=== PATIENT | male | born 1990 | race Caucasian/White ===

== ENCOUNTER 2016-02-20 08:47 | Emergency (ER) | payer BC, OTHER ==
[2016-02-20] MEDS ORDERED: PIPERACILLIN-TAZOBACTAM 3.375 GM in DEXTROSE/WATER 1 50ML.BAG IVPB STA (09:18)
[2016-02-20] MEDS ORDERED: LEVOFLOXACIN 750MG-D5W PMX 750 MG in DEXTROSE/WATER 1 150ML.BAG IVPB STA (09:18)
[2016-02-20] MEDS ORDERED: IV VANCOMYCIN PER PHARMACY 1 EACH MISC MISCELLANE PRN (09:18)
--- NOTE | 2016-02-20 09:25 | ED ---
Fever HPI - General Chief Complaint: Fever Stated Complaint: Poss Sepsis Time Seen by Provider: 02/20/16 08:50 Source: patient Mode of arrival: EMS Limitations: no limitations - History of Present Illness Initial Comments: This patient is a 25-year-old man with history of end-stage renal disease due to polycystic kidney disease, as well as having recent decubitus ulcer with infection, who [facility] [place] [facility] after he developed fever there overnight. The patient is also complaining of feeling weak. He is having a little bit of pain local to the ulcer site. He is denying other complaints. MD Complaint: fever, malaise -: hour(s) Temperature Source: oral Treatments Prior to Arrival: Acetaminophen - Related Data Home Medications Medication Instructions Recorded Confirmed ALPRAZolam [Xanax] 0.5 mg PO DAILY PRN 02/14/16 02/20/16 Allopurinol [Zyloprim] 100 mg PO DAILY 02/14/16 02/20/16 Folic Acid-Vit B Complex-Vit C 1 cap PO DAILY 02/14/16 02/20/16 [Nephrocaps] Heparin Sod 1000 Unit/1Ml [Heparin 5,000 unit SQ Q8H 02/14/16 02/20/16 Sodium] Hydrocodone/Acetaminophen 1 tab PO Q4H PRN 02/14/16 02/20/16 [Hydrocodone/Acetaminophen 10-300] Nepro 1 can PO BID-W/MEALS 02/14/16 02/20/16 Ondansetron [Zofran] 4 mg PO Q6H PRN 02/14/16 02/20/16 Pantoprazole Sodium 40 mg PO DAILY 02/14/16 02/20/16 Sodium Bicarbonate 325 mg PO BID 02/14/16 02/20/16 predniSONE 20 mg PO BID 02/14/16 02/20/16 Acetaminophen Tab [Tylenol Tab] 650 mg PO Q6H PRN 02/20/16 02/20/16 Clindamycin [Cleocin] 300 mg PO TID 02/20/16 02/20/16 Allergies Allergy/AdvReac Type Severity Reaction Status Date / Time No Known Allergies Allergy Verified 02/20/16 08:54 Review of Systems ROS Statement: Those systems with pertinent positive or pertinent negative responses have been documented in the HPI. ROS Other: All systems not noted in ROS Statement are negative. Constitutional: Reports: fever, chills, weakness Respiratory: Denies: cough, dyspnea Cardiovascular: Denies: chest pain, syncope Gastrointestinal: Denies: abdominal pain, vomiting, diarrhea Genitourinary: Denies: dysuria Musculoskeletal: Reports: as per HPI, other (Pain near the sacrum) Skin: Denies: rash Neurological: Denies: headache, weakness, numbness Past Medical History Past Medical History: Renal Disease Additional Past Medical History / Comment(s): Necrotizing Fascitis R Hip; Polycystic Kidney Disease; Gout; Wound on Coccyx History of Any Multi-Drug Resistant Organisms: None Reported Additional Past Surgical History / Comment(s): SURGERY FOR INFECTED LEFT ANKLE; R hip wound Past Anesthesia/Blood Transfusion Reactions: No Reported Reaction Past Psychological History: No Psychological Hx Reported Smoking Status: Never smoker Past Alcohol Use History: Rare Past Drug Use History: None Reported - Past Family History Mother Family Medical History: Cancer Father Family Medical History: Cancer General Exam Limitations: no limitations General appearance: alert, in distress Head exam: Present: atraumatic, normocephalic ENT exam: Present: mucous membranes dry Neck exam: Present: normal inspection, full ROM Respiratory exam: Present: normal lung sounds bilaterally, respiratory distress (There is mild tachypnea). Absent: wheezes, rales, rhonchi Cardiovascular Exam: Present: normal rhythm, tachycardia, systolic murmur ( Grade 1 systolic ejection murmur). Absent: diastolic murmur, rubs, gallop GI/Abdominal exam: Present: soft. Absent: distended, tenderness, guarding, rebound, pulsatile mass, hernia Extremities exam: Absent: pedal edema, calf tenderness Back exam: Present: other (There is a stage IV decubitus ulcer to the right of the midline over sacrum. There is foul smelling drainage, however the margins of the wound do look relatively good.) Neurological exam: Present: alert, oriented X3. Absent: motor sensory deficit Skin exam: Present: dry, intact, mottled. Absent: rash, cyanosis, erythema, petechiae, pallor Course Vital Signs 02/20/16 02/20/16 02/20/16 08:49 09:22 09:26 Temperature 104.3 F H Pulse Rate 165 H 155 H 155 H Respiratory 24 18 20 Rate Blood Pressure 78/40 64/33 75/36 O2 Sat by Pulse 97 98 97 Oximetry 02/20/16 02/20/16 02/20/16 09:41 09:56 11:11 Temperature Pulse Rate 155 H 167 H 160 H Respiratory 20 20 22 Rate Blood Pressure 78/43 82/40 71/33 O2 Sat by Pulse 97 96 96 Oximetry 02/20/16 02/20/16 02/20/16 11:26 13:22 13:55 Temperature 102.4 F H Pulse Rate 169 H 164 H 164 H Respiratory 20 22 24 Rate Blood Pressure 75/37 92/39 O2 Sat by Pulse 98 99 99 Oximetry 02/20/16 02/20/16 14:15 14:51 Temperature Pulse Rate 164 H 140 H Respiratory 40 H 38 H Rate Blood Pressure 227/120 127/60 O2 Sat by Pulse 97 99 Oximetry - Reevaluation(s) Reevaluation #1: 02/20/16 10:12 Patient is a 25-year-old man with history of decubitus ulcer, transferred from skilled nursing who appears to be septic. IV fluids and antibiotics are starting. Have discussed the case with Dr. Edgar , who will be seeing the patient. Consult also pending for infectious disease and also call for admitting physician pending. Reevaluation #2: 02/20/16 20:21 This is a late entry. The patient had a cardiac arrest and was resuscitated, see the code sheet. The patient initially went asystolic and after epinephrine and bicarbonate went into V. tach, had defibrillation and then was in sinus rhythm. Additional fluid bolus and pressors ordered. The patient did have a second heart attack arrest while being evaluated by the history teacher. We attempted to resuscitate patient by ACLS protocol, see the resuscitation sheet. During resuscitation the history teacher has spoken with family twice and after the second discussion the patient was pronounced . The rhythm was asystole throughout resuscitation area does appear that the patient has had overwhelming sepsis related to the extensive pneumonia of the left lung. I discussed case with Dr. Rubi who will sign the certificate. I discussed case with the director of medical review who stated that the patient would be released to home. The patient's family is at this point considering requesting autopsy. 02/20/16 20:24 Reevaluation #3: 02/20/16 20:29 The patient did become very dyspneic following the central line placement and when asked he was feeling fatigued, therefore decision to intubate the patient. See the procedure note. Prior to that he had been breathing comfortably and having good pulse oximetry readings. Procedures - Central Line Placement Left Femoral Consent Obtained: verbal consent Time Out Performed: Yes Patient Placed on Monitor/Pulse Ox: Yes MD Prep: mask, gown, gloves Central Line Prep: Chlorhexidine scrub, sterile drapes applied Local Anesthesia Used: Lidocaine 1% Ultrasound Used for Placement: Yes Central Line Lumen Inserted: triple Bloods Obtained for Lab: Yes (Repeat lactic acid) Central Line Position: all ports aspirated, flushed, capped, sutured in place with 3-0 nylon Dressing Applied: Tegaderm Patient Tolerated Procedure: well, no complications - Intubation Sedative: Versed Paralytic: Rocuronium Laryngoscope: Eileen Size: 3 ET Tube Size: 8 ET Tube Uncuffed: No Tube Placement Confirmation: visualized tube passing through cords, equal breath sounds bilaterally, no breath sounds over epigastrium, confirmation by capnometry Patient Tolerated Procedure: well Intubation Complications: none Medical Decision Making - Medical Decision Making Patient's 25-year-old man presenting with fever and hypotension. Clinically appears and sepsis. IV fluid bolus and antibiotics ordered. Case discussed with consultants and their recommendations are incorporated. The patient's blood pressure did transiently respond with fluids however he again became hypotensive and central line placed. Fluid bolus and pressors ordered, however at the end of the central line placement the blood pressure is adequate. Following the central line placement, the patient becoming more dyspneic - Lab Data Result diagrams: 02/20/16 08:50 02/20/16 08:50 Lab Results 02/20/16 02/20/16 02/20/16 Range/Units 08:50 08:50 08:50 WBC 10.0 (3.8-10.6) k/uL RBC 2.78 L (4.30-5.90) m/uL Hgb 8.1 L (13.0-17.5) gm/dL Hct 25.4 L (39.0-53.0) % MCV 91.4 (80.0-100.0) fL MCH 29.3 (25.0-35.0) pg MCHC 32.1 (31.0-37.0) g/dL RDW 17.0 H (11.5-15.5) % Plt Count 158 (150-450) k/uL Neutrophils % Not Reportable Neutrophils % (Manual) 70.0 % Band Neutrophils % 12.5 % Lymphocytes % Not Reportable Lymphocytes % (Manual) 9.0 % Monocytes % Not Reportable Monocytes % (Manual) 6.5 % Eosinophils % Not Reportable Basophils % Not Reportable Metamyelocytes % 1.5 % Myelocytes % 0.5 % Neutrophils # Not Reportable Neutrophils # (Manual) 8.3 H (1.3-7.7) k/uL Lymphocytes # Not Reportable Lymphocytes # (Manual) 0.9 L (1.0-4.8) k/uL Monocytes # Not Reportable Monocytes # (Manual) 0.7 (0-1.0) k/uL Eosinophils # Not Reportable Basophils # Not Reportable Nucleated RBCs 0 (0-0) /100 WBC Differential Comment Not Reportable Manual Slide Review Performed Toxic Granulation Present Toxic Vacuolation Present Anisocytosis Slight Rouleaux Present PT (9.0-12.0) sec INR (<1.1) APTT (22.0-30.0) sec ABG Lactic Acid (0.5-1.6) mmol/L Sodium 132 L (137-145) mmol/L Potassium 4.6 (3.5-5.1) mmol/L Chloride 95 L (98-107) mmol/L Carbon Dioxide 21 L (22-30) mmol/L Anion Gap 16 mmol/L BUN 67 H (9-20) mg/dL Creatinine 5.20 H* (0.66-1.25) mg/dL Est GFR (MDRD) Af Amer 17 (>60 ml/min/1.73 sqM) Est GFR (MDRD) Non-Af 14 (>60 ml/min/1.73 sqM) Glucose 101 H (74-99) mg/dL Plasma Lactic Acid Basilio (0.7-2.0) mmol/L Calcium 8.0 L (8.4-10.2) mg/dL Total Bilirubin 0.6 (0.2-1.3) mg/dL AST 37 (17-59) U/L ALT 42 (21-72) U/L Alkaline Phosphatase 86 (38-126) U/L Total Creatine Kinase <20 L (55-170) U/L CK-MB (CK-2) 0.3 (0.0-2.4) ng/mL CK-MB (CK-2) Rel Index 0.0 Troponin I 0.028 (0.000-0.034) ng/mL Total Protein 4.0 L (6.3-8.2) g/dL Albumin 2.3 L (3.5-5.0) g/dL Cortisol 52 ug/dL 02/20/16 02/20/16 02/20/16 Range/Units 08:50 08:50 13:41 WBC (3.8-10.6) k/uL RBC (4.30-5.90) m/uL Hgb (13.0-17.5) gm/dL Hct (39.0-53.0) % MCV (80.0-100.0) fL MCH (25.0-35.0) pg MCHC (31.0-37.0) g/dL RDW (11.5-15.5) % Plt Count (150-450) k/uL Neutrophils % Neutrophils % (Manual) % Band Neutrophils % % Lymphocytes % Lymphocytes % (Manual) % Monocytes % Monocytes % (Manual) % Eosinophils % Basophils % Metamyelocytes % % Myelocytes % % Neutrophils # Neutrophils # (Manual) (1.3-7.7) k/uL Lymphocytes # Lymphocytes # (Manual) (1.0-4.8) k/uL Monocytes # Monocytes # (Manual) (0-1.0) k/uL Eosinophils # Basophils # Nucleated RBCs (0-0) /100 WBC Differential Comment Manual Slide Review Toxic Granulation Toxic Vacuolation Anisocytosis Rouleaux PT 10.9 (9.0-12.0) sec INR 1.1 (<1.1) APTT 37.6 H (22.0-30.0) sec ABG Lactic Acid 7.3 H* (0.5-1.6) mmol/L Sodium (137-145) mmol/L Potassium (3.5-5.1) mmol/L Chloride (98-107) mmol/L Carbon Dioxide (22-30) mmol/L Anion Gap mmol/L BUN (9-20) mg/dL Creatinine (0.66-1.25) mg/dL Est GFR (MDRD) Af Amer (>60 ml/min/1.73 sqM) Est GFR (MDRD) Non-Af (>60 ml/min/1.73 sqM) Glucose (74-99) mg/dL Plasma Lactic Acid Basilio 6.6 H* (0.7-2.0) mmol/L Calcium (8.4-10.2) mg/dL Total Bilirubin (0.2-1.3) mg/dL AST (17-59) U/L ALT (21-72) U/L Alkaline Phosphatase (38-126) U/L Total Creatine Kinase (55-170) U/L CK-MB (CK-2) (0.0-2.4) ng/mL CK-MB (CK-2) Rel Index Troponin I (0.000-0.034) ng/mL Total Protein (6.3-8.2) g/dL Albumin (3.5-5.0) g/dL Cortisol ug/dL - EKG Data -: EKG Interpreted by De EKG shows normal: sinus rhythm, axis (Normal), intervals (Normal), QRS complexes (Normal), ST-T waves (Normal) Rate: tachycardia (Rate approximately 162 bpm) Critical Care Time Critical Care Time: Yes (90 minutes.) Critical Care Time: Critical care time for this patient included initial history and physical, telephone order dispatcher, study interpretation, multiple discussions with family, discussion of the patient with the admitting physician, with the history teacher, with the general surgeon, with the coating machine operator, among the consultants. In addition there were multiple re-evaluations. Disposition Clinical Impression: Pneumonia, Sepsis, Renal failure, Hypotension, Lactic acidosis, Cardiopulmonary arrest Disposition: Condition: Critical Referrals: Christiano Rubi MD [Primary Care Provider] - 1-2 days Preliminary Cause of : Pneumonia with septicemia
[2016-02-20] MEDS ORDERED: VANCOMYCIN 1,500 MG in SODIUM CHLORIDE 0.9% 250 ML IVPB STA (09:27)
[2016-02-20] MEDS ORDERED: fentaNYL (PF) 50 MCG/ML 5 ML AMP IVP STA ×2 (09:31→11:33)
[2016-02-20] MEDS: SODIUM CHLORIDE 0.9% 500 ML IV SCH ×2 (09:43→10:15)
[2016-02-20] MEDS ORDERED: ONDANSETRON 4 MG/2 ML VIAL IVP STA (09:43)
[2016-02-20 10:04] LABS: INR 1.1 (<1.1); Partial Thromboplastin Time 37.6 sec (22.0-30.0); Prothrombin Time 10.9 sec (9.0-12.0)
[2016-02-20 10:07] LABS: Potassium 4.6 mmol/L (3.5-5.1); Total Bilirubin 0.6 mg/dL (0.2-1.3)
[2016-02-20 10:08] LABS: Anisocytosis Slight; CH 29.2; HCT 25.4 % (39.0-53.0); HDW 2.56; HGB 8.1 gm/dL (13.0-17.5); Immature Gran Flag Marked; MCH 29.3 pg (25.0-35.0); MCHC 32.1 g/dL (31.0-37.0); MCV 91.4 fL (80.0-100.0); Mean Platelet Volume 8.7; RBC 2.78 m/uL (4.30-5.90); WBC (Perox) 10.41
[2016-02-20 10:19] LABS: Creatine Kinase <20 U/L (55-170)
[2016-02-20 10:24] LABS: Manual Review Performed
[2016-02-20 10:25] LABS: Rouleaux Present; Toxic Granulation Present; Toxic Vacuolation Present
[2016-02-20 10:26] LABS: Add Differential Manual Differential
[2016-02-20 10:29] LABS: Band Neutrophils % 12.5 %; Metamyelocytes % 1.5 %; Myelocytes % 0.5 %; Nucleated Red Blood Cells 0 /100 WBC (0-0); Total Cells Counted 200
[2016-02-20 10:32] LABS: Creatine Kinase MB 0.3 ng/mL (0.0-2.4); Troponin I 0.028 ng/mL (0.000-0.034)
--- NOTE | 2016-02-20 10:40 | XR ---
EXAMINATION TYPE: XR chest 1V portable DATE OF EXAM: 02/20/2016 10:34 AM COMPARISON: Chest x-ray May 17, 2015 HISTORY: Fever TECHNIQUE: Single AP portable semiupright view of the chest is obtained. FINDINGS: There is new dual-lumen right internal jugular dialysis catheter with tips at cavoatrial ju nction at right atrium. There is new left upper and lateral lung opacification suspicious for atypic al pleural fluid collection given location along the periphery. Some diffuse left lung infiltrate and /or atelectasis is also likely present. Right lung remains clear. The cardiac silhouette size is with in normal limits. The osseous structures are intact. IMPRESSION: New diffuse left lung peripheral opacity worrisome for moderate size nonsimple pleural f luid collection. Suspect some mild diffuse left lung infiltrate. Consider CT correlation due to unusu al findings.
[2016-02-20] MEDS ORDERED: SODIUM CHLORIDE 0.9% 2,000 ML IV STA (11:24)
[2016-02-20] MEDS ORDERED: ENOXAPARIN 100 MG/ML SYRINGE SQ STA (11:35)
--- NOTE | 2016-02-20 12:27 | CT ---
EXAMINATION TYPE: CT angio chest DATE OF EXAM: 02/20/2016 12:09 PM COMPARISON: Same day chest x-ray HISTORY: Patient complains of severe difficulty breathing and unproductive cough. Abnormal x-ray toda y. CT DLP: 430.8 mGycm Automated exposure control for dose reduction was used. CONTRAST: CTA scan of the thorax is performed with IV Contrast, patient injected with 100 mL of Visipaque 320, pulmonary embolism protocol. MIP images are created and reviewed. FINDINGS: LUNGS: Small left-sided pleural fluid collection or effusion is confirmed layering predominantly depe ndently. There is dense consolidation with air bronchograms involving majority of the the left upper lobe with more ill-defined consolidation towards the apex. There is compressive atelectasis in the le ft lower lobe. There is additional patchy posterior lateral consolidation and/or atelectasis in the l ingula much less pronounced than in the left upper lobe. Some respiratory motion artifact is present making evaluation suboptimal particularly towards diaphra gms. Right lung is predominantly clear. No pneumothorax is seen bilaterally. Tracheobronchial tree is patent. MEDIASTINUM: There is suboptimal bolus with marked heterogeneity and poor contrast as well as equal c ontrast noted in right and left heart systems. There is no large saddle pulmonary embolism, smaller l obar as well as segmental and subsegmental PE cannot be excluded on this exam. There are prominent and some enlarged thoracic lymph nodes. For reference right paratracheal lymph no de measures 1.5 x 1.1 cm on axial image 36. There is tiny pericardial effusion seen. No cardiomegaly is identified. Main pulmonary artery is dila mell at 3.2 cm larger than adjacent ascending aorta on axial image 47. CT findings suggesting underlyi ng pulmonary artery hypertension. 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 There is right internal jugular Mediport catheter with tips in SVC and cavoatrial junction confirmed. OTHER: Visualized portion of spleen and liver are prominent, hepatosplenomegaly is likely present. C alcifications are seen centrally in the liver near gallbladder fossa. IMPRESSION: 1. SUBOPTIMAL BOLUS, NO LARGE CENTRAL SADDLE PULMONARY EMBOLISM, SMALLER LOBAR, SEGMENTAL, SUBSEGMENT AL PE CANNOT BE EXCLUDED ON THIS EXAM. 2. LEFT UPPER NEAR COMPLETE LOBAR CONSOLIDATION WORRISOME FOR LOBAR PNEUMONIA. SMALL LEFT PLEURAL EFF USION IS SEEN COULD BE PARAPNEUMONIC IN ETIOLOGY. SOME ADDITIONAL ATELECTATIC CHANGE AND/OR PERHAPS L IMITED CONSOLIDATION IN THE LINGULA AND LEFT LOWER LOBE ARE PRESENT. ALSO SUSPECT REACTIVE THORACIC A DENOPATHY. 3. PROBABLE HEPATOSPLENOMEGALY. NEED TO FURTHER INVESTIGATION BE BASED ON CLINICAL CORRELATION. CT AB DOMEN AND PELVIS JULY 2014 DISCUSSED ENLARGED LYMPH NODES, SPLENOMEGALY IS PRESENT ON THIS EXAM.
[2016-02-20] MEDS ORDERED: LORazepam 2 MG/ML SYRINGE IV STA ×2 (13:12→14:32)
[2016-02-20] MEDS ORDERED: MORPHINE SULFATE 2 MG/ML SYRINGE IV PRN (13:47)
[2016-02-20] MEDS ORDERED: NALOXONE 0.4 MG/ML 1 ML VIAL IV PRN (13:47)
[2016-02-20] MEDS ORDERED: ACETAMINOPHEN TAB 325 MG TAB PO PRN (13:47)
[2016-02-20] MEDS ORDERED: ALPRAZolam 0.5 MG TAB PO PRN (13:53)
[2016-02-20] MEDS ORDERED: HYDROcodone/APAP 10-325MG 1 EACH TAB PO PRN (13:53)
[2016-02-20] MEDS ORDERED: ONDANSETRON 4 MG TAB PO PRN (13:53)
[2016-02-20 13:57] VITALS: TEMP 102.4
[2016-02-20] MEDS ORDERED: HEPARIN SQ SCH (14:00)
[2016-02-20] MEDS ORDERED: NOREPINEPHRIN 4 MG-0.9% NS PMX 4 MG in SALINE 1 250ML.BAG IV SCH (14:00)
[2016-02-20] MEDS ORDERED: NOREPINEPHRINE 4 MG in SODIUM CHLORIDE 0.9% 250 ML IV SCH (14:00)
[2016-02-20] MEDS ORDERED: SODIUM CHLORIDE 0.9% 1,000 ML IV SCH (14:00)
--- NOTE | 2016-02-20 14:01 | XR ---
EXAMINATION TYPE: XR chest 1V portable DATE OF EXAM: 02/20/2016 1:55 PM COMPARISON: Chest x-ray and CTA chest from earlier today HISTORY: Femoral central line placement. TECHNIQUE: Single AP portable frontal semiupright view of the chest is obtained. FINDINGS: There is stable right internal jugular dual-lumen dialysis catheter. There is persistent o pacity in the left lung superiorly and laterally, this correlates with small left effusion and dense left upper lung consolidation. Right lung remains clear. Cardiac silhouette size is stable and within normal limits. Osseous structures are intact. IMPRESSION: Overall stable findings, persistent small left pleural effusion and dense left upper lob e consolidation.
[2016-02-20] MEDS ORDERED: MORPHINE SULFATE 4 MG/ML SYRINGE IV STA (14:32)
[2016-02-20] MEDS ORDERED: ACETAMINOPHEN SUPPOSITORY 650 MG SUPP RECTAL STA (14:32)
[2016-02-20] MEDS ORDERED: ARTIFICIAL TEARS OINTMENT 3.5 GM TUBE BOTH EYES PRN (15:10)
--- NOTE | 2016-02-20 15:17 | XR ---
EXAMINATION TYPE: [facility]R [facility] DATE OF EXAM: 02/20/2016 3:11 PM COMPARISON: Chest x-ray and CT chest from earlier today HISTORY: Difficulty breathing had to be intubated. TECHNIQUE: Single AP portable frontal supine view of the chest is obtained. FINDINGS: There is new endotracheal tube at inferior clavicular margin, approximately 5 to 6 cm above the grayson. There is new orogastric tube coiled in stomach below diaphragm. There is stable right internal jugular dual-lumen dialysis catheter. There is persistent opacity in t he left lung superiorly and laterally, this correlates with small left effusion and dense left upper lung consolidation. Right lung remains clear. Cardiac silhouette size is stable and within normal allen its. Osseous structures are intact. IMPRESSION: 1. New ET and OGT are satisfactory in position. 2. Other findings stable with small left pleural effusion and dense left upper lobe consolidation all redemonstrated
[2016-02-20] MEDS ORDERED: EPINEPHrine 10 ML SYRINGE (0.1 MG/ML) ONE (15:25)
[2016-02-20] MEDS ORDERED: SODIUM BICARB 8.4% 50 ML VIAL (1 MEQ/ML) ONE (15:25)
[2016-02-20] MEDS ORDERED: MAGNESIUM SULFATE-D5W PMX 1 GM/100 ML BAG IVPB ONE (15:25)
[2016-02-20 15:26] VITALS: BP 127/60; PULSE 140; RESP 38
[2016-02-20] MEDS ORDERED: CLINDAMYCIN 150 MG CAP PO SCH (16:00)
[2016-02-20] MEDS ORDERED: NON-FORMULARY DRUG (Nepro 1 CAN) PO SCH (17:30)
[2016-02-20] MEDS ORDERED: SODIUM BICARBONATE 325 MG PO SCH (21:00)
[2016-02-20] MEDS ORDERED: FAMOTIDINE 20 MG/2 ML VIAL IV SCH (21:00)
[2016-02-21] MEDS ORDERED: FOLIC ACID-VIT B COMPLEX-VIT C 1 CAP PO SCH (09:00)
[2016-02-21] MEDS ORDERED: ALLOPURINOL 100 MG TAB PO SCH (09:00)
== END 2016-02-20 15:52 | disposition expired ==
LOC: EC 08:47
DX: I46.9 Cardiac arrest, cause unspecified (principal); N18.6 End stage renal disease; Q61.3 Polycystic kidney, unspecified; A41.9 Sepsis, unspecified organism; J18.9 Pneumonia, unspecified organism; I95.9 Hypotension, unspecified; E87.2 Acidosis; M72.6 Necrotizing fasciitis; L89.219 Pressure ulcer of right hip, unspecified stage; R16.2 Hepatomegaly with splenomegaly, not elsewhere classified; J90 Pleural effusion, not elsewhere classified; Z79.899 Other long term (current) drug therapy
CPT/HCPCS: 99291 ×2; 99292 ×2; 92950 ×2; 31500 ×2; 36556 ×2; 51702 ×2; 96365 ×2; 96366 ×3; 96367 ×3; 96375 ×3; 36415; 94002; 93005; 83605 ×2; 80053; 82533; 82550; 82553; 84484; 85025; 85610; 85730; 87040; 87070; 87205; 87077; 87186; 71010; 71275; J3370; J2060; Q9967; J2405; J1650; J0171; J3010; J1956; J3475; J2543